=== PATIENT | female | born 2000 | race Caucasian/White ===

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

== ENCOUNTER → 2022-02-25 | Outpatient (CLI) | payer OTHER ==
--- NOTE | 2022-02-25 11:55 | MR ---
PRE AND POSTCONTRAST ENHANCED MRI OF THE BRAIN: CLINICAL HISTORY: Headaches, follow-up venous angioma CONTRAST: gadavist 4.5ml COMPARISON: 09/14/2012 Multiplanar and multispin-echo imaging of the brain was performed both before and after the administr ation of contrast. The ventricles, basal cisterns and sulci overlying the cerebral convexities are within normal limits. There is no evidence for midline shift or mass effect. Acute intracranial hemorrhage or extra-axial collection is not evident. There are no abnormal areas of increased or decreased signal intensity within the brain parenchyma. Following contrast administration, there is no evidence for enhancing mass. Stable left frontal veno us angioma is redemonstrated. The paranasal sinuses and mastoid air cells are well-aerated. IMPRESSION: Stable left frontal venous angioma is redemonstrated. Otherwise unremarkable study
== END | disposition home or self-care (01) ==
LOC: RADMRIMAIN 10:43
PROVIDERS: ATTEND Family Medicine
DX: G43.009 Migraine without aura, not intractable, without status migrainosus (principal); Q28.2 Arteriovenous malformation of cerebral vessels
CPT/HCPCS: 70553; A9585